=== PATIENT | female | born 1955 | race Caucasian/White ===

== ENCOUNTER → 2018-01-30 08:40 | Outpatient (CLI) | payer OTHER, SELFPAY ==
[2018-01-30 09:56] LABS: AST(SGOT) 16 U/L (15-37); Alanine Aminotransfer ALT/SGPT 24 U/L (13-56); Albumin, Serum 3.6 g/dL (3.2-5.0); Alkaline Phosphatase 92 U/L (45-117); Anion Gap 8 (5-15); BUN 12 mg/dL (7-18); BUN/Creat Ratio 16.6 RATIO (10-20); Calcium,Total 8.6 mg/dL (8.5-10.1); Chloride 104 mmol/L (98-107); Cholesterol 164 mg/dL (200); Creatinine, Serum 0.72 mg/dL (0.55-1.02); EST Glomerular Filtration Rate 87 mL/min (>60); Est Glom Filt Rate - Afr Amer 106 mL/min (>60); Globulin 3.7 g/dL (2.2-4.2); Glucose 93 mg/dL (74-106); High Density Lipoprotein 43 mg/dL; Potassium 3.7 mmol/L (3.5-5.1); Protein, Total 7.3 g/dL (6.4-8.2); Sodium Level 143 mmol/L (136-145); Thyroid Stim Hormone (TSH) 1.77 uIU/mL (0.358-3.74); Triglycerides 104 mg/dL; Very Low Density Lipoprotein 21 mg/dL (5-40)
== END ==
PROVIDERS: Family Provider Family Medicine; PCP Family Medicine; Visit Provider Family Medicine
DX: I10 Essential (primary) hypertension (principal); R63.5 Abnormal weight gain
CPT/HCPCS: 36415; 80053; 80061; 84443

== ENCOUNTER 2018-08-09 16:35 | Outpatient (RCR) | payer OTHER, SELFPAY ==
[2018-06-03 16:38] VITALS: BMI 36.1
== END 2018-08-22 23:59 ==
LOC: NS 16:35
PROVIDERS: Family Provider Family Medicine; PCP Family Medicine; Visit Provider Family Medicine
DX: E66.9 Obesity, unspecified (principal); Z68.36 Body mass index [BMI] 36.0-36.9, adult; Z71.3 Dietary counseling and surveillance
CPT/HCPCS: 97802

== ENCOUNTER 2018-09-08 16:30 | Outpatient (RCR) | payer OTHER, SELFPAY ==
[2018-06-03 16:38] VITALS: BMI 36.1
== END 2018-09-21 23:59 ==
LOC: NS 16:30
PROVIDERS: Family Provider Family Medicine; PCP Family Medicine; Visit Provider Family Medicine
DX: E66.9 Obesity, unspecified (principal); Z68.36 Body mass index [BMI] 36.0-36.9, adult; Z71.3 Dietary counseling and surveillance
CPT/HCPCS: 97803

== ENCOUNTER 2018-09-29 17:21 | Outpatient (RCR) | payer OTHER, SELFPAY ==
[2018-06-03 16:38] VITALS: BMI 36.1
== END 2018-10-22 23:59 ==
LOC: NS 17:21
PROVIDERS: Family Provider Family Medicine; PCP Family Medicine; Visit Provider Family Medicine
DX: E66.9 Obesity, unspecified (principal); Z68.36 Body mass index [BMI] 36.0-36.9, adult; Z71.3 Dietary counseling and surveillance
CPT/HCPCS: 97803

== ENCOUNTER → 2019-02-05 09:22 | Outpatient (CLI) | payer OTHER, SELFPAY ==
[2019-02-01 16:35] VITALS: BMI 34.1
[2019-02-05 10:55] LABS: Anion Gap 6 (5-15); BUN 17 mg/dL (7-18); BUN/Creat Ratio 24.3 RATIO (10-20); Calcium,Total 8.8 mg/dL (8.5-10.1); Chloride 106 mmol/L (98-107); Cholesterol 161 mg/dL (200); EST Glomerular Filtration Rate 90 mL/min (>60); Est Glom Filt Rate - Afr Amer 109 mL/min (>60); Glucose 86 mg/dL (74-106); High Density Lipoprotein 46 mg/dL; Potassium 4.1 mmol/L (3.5-5.1); Sodium Level 142 mmol/L (136-145); Triglycerides 89 mg/dL; Very Low Density Lipoprotein 18 mg/dL (5-40)
== END ==
PROVIDERS: Family Provider Family Medicine; PCP Family Medicine; Referring Provider Family Medicine; Visit Provider Family Medicine
DX: I10 Essential (primary) hypertension (principal)
CPT/HCPCS: 36415; 80048; 80061

== ENCOUNTER → 2021-03-26 | Outpatient (CLI) | payer OTHER, SELFPAY ==
[2021-03-29 15:31] LABS: HPV APTIMA, High Risk Negative (Negative)
[2021-03-29 15:32] LABS: HPV Reflexed? YES, CHARGE PATIENT
== END | disposition home or self-care (01) ==
LOC: LABSPEC 10:54
PROVIDERS: PCP Family Medicine; Referring Provider Physician Assistant; Visit Provider Physician Assistant
DX: Z12.4 Encounter for screening for malignant neoplasm of cervix (principal); Z78.0 Asymptomatic menopausal state
CPT/HCPCS: 87624; 88175; G0145

== ENCOUNTER → 2021-03-30 08:05 | Outpatient (CLI) | payer OTHER, SELFPAY ==
[2021-03-30 09:05] LABS: Absolute Lymphocyte Count 1.65 X10^3/uL (0.83-4.51); Absolute Neutrophil Count 4.9 X10^3/uL (2.0-7.7); Basophil# 0.05 X10^3/uL; Basophil% 0.7 % (0-1); Eosinophil# 0.29 X10^3/uL; Eosinophils% 3.9 % (0-5); Hematocrit 41.6 % (37-47); Hemoglobin 13.7 g/dL (12.0-15.0); Lymphocyte # 1.65 X10^3/ul (0.83-4.51); Lymphocyte % 22.1 % (19-41); Mean Corp Hgb Conc 32.9 g/dL (32-36); Mean Corpuscular Hgb 28.3 pg (27.0-32.0); Mean Platelet Vol. 9.6 fl (6.2-12.0); Monocyte# 0.53 X10^3/uL; Monocyte% 7.1 % (0-10); NRBC Flagged by Analyzer 0 % (0-5); Neutrophil # 4.89 X10^3/uL (2.7-7.7); Neutrophil % 65.7 % (47-70); Platelet Count 297 K/mm3 (150-450); RBC Distribution Width CV 14.6 % (11.6-14.6); RBC Distribution Width SD 46.1 fl (35.1-43.9); Red Blood Count 4.84 M/mm3 (4.2-5.4); White Blood Count 7.5 K/mm3 (4.4-11.0)
[2021-03-30 09:37] LABS: ALB/GLOB Ratio 0.9 RATIO (0.9-2.4); AST(SGOT) 16 U/L (15-37); Alanine Aminotransfer ALT/SGPT 24 U/L (13-56); Albumin, Serum 3.3 g/dL (3.2-5.0); Alkaline Phosphatase 87 U/L (45-117); Anion Gap 3 (5-15); BUN 15 mg/dL (7-18); BUN/Creat Ratio 18.9 RATIO (10-20); Calcium,Total 8.7 mg/dL (8.5-10.1); Chloride 105 mmol/L (98-107); Cholesterol 172 mg/dL (200); EST Glomerular Filtration Rate 77 mL/min (>60); Est Glom Filt Rate - Afr Amer 94 mL/min (>60); Globulin 3.8 g/dL (2.2-4.2); Glucose 102 mg/dL (74-106); High Density Lipoprotein 48 mg/dL; Potassium 3.9 mmol/L (3.5-5.1); Protein, Total 7.1 g/dL (6.4-8.2); Sodium Level 138 mmol/L (136-145); Thyroid Stim Hormone (TSH) 1.81 uIU/mL (0.358-3.74); Triglycerides 109 mg/dL; Very Low Density Lipoprotein 22 mg/dL (5-40)
== END ==
PROVIDERS: PCP Family Medicine; Visit Provider Physician Assistant
DX: Z00.00 Encounter for general adult medical examination without abnormal findings (principal); I10 Essential (primary) hypertension; E66.9 Obesity, unspecified; Z13.220 Encounter for screening for lipoid disorders; Z13.29 Encounter for screening for other suspected endocrine disorder
CPT/HCPCS: 36415; 80053; 80061; 84443; 85025

== ENCOUNTER → 2022-11-21 | Outpatient (CLI) | payer OTHER, SELFPAY | END | disposition home or self-care (01) | LOC: LABSPEC 10:24 | PROVIDERS: PCP Family Medicine; Referring Provider Physician Assistant Surgical; Visit Provider Physician Assistant Surgical | DX: R30.0 Dysuria (principal) | CPT/HCPCS: 87077; 87086; 87088; 87186 ==

== ENCOUNTER → 2023-02-11 | Outpatient (CLI) | payer OTHER, SELFPAY | END | disposition home or self-care (01) | LOC: LABSPEC 08:05 | PROVIDERS: PCP Family Medicine; Visit Provider Physician Assistant | DX: N39.0 Urinary tract infection, site not specified (principal) | CPT/HCPCS: 87077; 87086; 87088; 87186 ==

== ENCOUNTER → 2023-03-12 | Outpatient (CLI) | payer OTHER, SELFPAY ==
[2023-03-17 22:11] LABS: Chlamydia By Nucleic Acid AMP Negative; Gonococcus By Nucleic Acid AMP Negative; HPV Reflexed? NOT INDICATED
== END | disposition home or self-care (01) ==
LOC: LABSPEC 16:06
PROVIDERS: PCP Family Medicine; Referring Provider Family Medicine; Visit Provider Family Medicine
DX: N89.8 Other specified noninflammatory disorders of vagina (principal)
CPT/HCPCS: 87491; 87591; 88142

== ENCOUNTER → 2023-10-09 | Outpatient (CLI) | payer OTHER, SELFPAY ==
[2023-10-09 12:47] LABS: ALB/GLOB Ratio 1.1 RATIO (0.9-2.4); AST(SGOT) 16 U/L (15-37); Alanine Aminotransfer ALT/SGPT 23 U/L (13-56); Albumin, Serum 3.6 g/dL (3.2-5.0); Alkaline Phosphatase 84 U/L (45-117); Anion Gap 4 (5-15); BUN 17 mg/dL (7-18); BUN/Creat Ratio 23.7 RATIO (10-20); Calcium,Total 9.5 mg/dL (8.5-10.1); Chloride 102 mmol/L (98-107); Creatinine, Serum 0.72 mg/dL (0.55-1.02); EST Glomerular Filtration Rate 87 mL/min (>60); Est Glom Filt Rate - Afr Amer 105 mL/min (>60); Globulin 3.2 g/dL (2.2-4.2); Glucose 99 mg/dL (74-106); Potassium 4.6 mmol/L (3.5-5.1); Protein, Total 6.8 g/dL (6.4-8.2); Sodium Level 138 mmol/L (136-145); Thyroid Stim Hormone (TSH) 1.75 uIU/mL (0.358-3.74)
== END | disposition home or self-care (01) ==
LOC: BIMLAB 09:17
PROVIDERS: PCP Family Medicine; Visit Provider Family Medicine
DX: I10 Essential (primary) hypertension (principal)
CPT/HCPCS: 36415; 80053; 84443

== ENCOUNTER → 2024-06-28 | Outpatient (CLI) | payer OTHER, SELFPAY | END | disposition home or self-care (01) | LOC: LABSPEC 10:28 | PROVIDERS: PCP Family Medicine; Visit Provider Family Medicine | DX: N39.0 Urinary tract infection, site not specified (principal) | CPT/HCPCS: 87077; 87086; 87088; 87186 ==

== ENCOUNTER → 2024-12-14 | Outpatient (CLI) | payer MEDICARE, SELFPAY ==
--- NOTE | 2024-12-14 12:21 | BD_ITS ---
PROCEDURE: DEXA BONE DENSITY STUDY 12/14/2024 REASON FOR EXAM: OSTEOPOROSIS F, age 69 y/o . Postmenopausal. TECHNIQUE: DEXA BONE DENSITY STUDY COMPARISON: None available FINDINGS: BMD and T-SCORES Lumbar spine: 0.892 g/cm2, T-score -1.4 Levels: L1 through L4 Right femoral neck: 0.631 g/cm2, T-score -2.0 BD/Dexa Bone Density Study IMPRESSION: Patient's bone density reveals osteopenia with an estimated 10 year risk for hi p fracture of 1.5% and for a Major osteoporotic fracture of 10%. This fracture risk estimate was calculated using FRAX version 3.08. Reading Location: [id number]
== END | disposition home or self-care (01) ==
PROVIDERS: PCP Family Medicine; Referring Provider Family Medicine; Visit Provider Family Medicine
DX: M85.80 Other specified disorders of bone density and structure, unspecified site (principal); Z78.0 Asymptomatic menopausal state
CPT/HCPCS: 77080

== ENCOUNTER → 2025-01-01 | Outpatient (CLI) | payer MEDICARE, SELFPAY ==
--- OUTSIDE RECORDS SUMMARY | 2025-01-02 09:28 | XMS RPT_ITS | CCD ---
Author Organization [facility]iniSy[facility] Care Team Providers Care Cloth Calender Name Role Phone ANILA KESSLER DO Primary Care Physician Dr. Anila Kessler Primary Care Provider [phone] Dr. Anila Kessler Attending Provider [phone] Dr. Anila Kessler Referring Provider [phone] JERSEY Rangel Attending Provider Dr. Anila Kessler Primary Care Provider [phone] Dr. Anila Kessler Referring Provider JERSEY Jackson Attending Provider JERSEY Rangel Attending Provider JERSEY Jackson Attending Provider Dr. Anila Kessler Attending Provider ANILA KESSLER DO Primary Care Physician ANILA KESSLER DO Attending Unavailable ANILA KESSLER DO Primary Care Unavailable Dr. Anila Kessler DO Primary Care Provider Dr. Anila Kessler DO Attending Provider [phone] Dr. Anila Kessler DO Referring Provider Anila Kessler Primary Care Unavailable Brown, Anila R Attending Unavailable Checo, Anila R Referring Unavailable Brown, Anila R Attending Unavailable Brown, Anila R Primary Care Unavailable Brown, Anila R Referring Unavailable Brown, Anila R Attending Unavailable [place], Anila R Primary Care Unavailable Brown, Anila R Primary Care Unavailable Brown, Anila R Referring Unavailable Pranav Orozco Attending Unavailable [place], Anila R Referring Unavailable [place], Anila R Attending Unavailable [place], Anila R Primary Care Unavailable ANILA KESSLER DO Attending Unavailable ANILA KESSLER DO Primary Care Unavailable Roof [employer]K PROCESSING WORKERNithin Starks Attending Provider [phone] Allergies Allergy Classification Reported Allergen(s) Allergy Type Date of Onset Reaction(s) Facility (6 sources) Ampicillin Drug Allergy 11-20-2022 Swelling [facility] (1 source) Ampicillin Drug Allergy 12-22-2024 [facility] Repository Medications Current Medications Medication Drug Class(es) Dates Sig (Normalized) Sig (Original) amLODIPine 5 mg oral tablet (20 sources) Dihydropyridine Calcium Channel Hunter Start: 03-12-2023 End: 12-26-2024 take 1 tablet by mouth once daily Amlodipine 5 mg tablet Active 5 mg PO DAILY 90 0 December 26, 2024 8:37am Start: 03-12-2023 Amlodipine Act rosalva MG PO March 12, 2023 12:00am Start: 04-09-2022 End: 11-20-2022 take 1 tablet by mouth once daily Amlodipine (Norvasc) 5 mg tablet Discontinued 5 mg PO DAILY 90 3 October 01, 2022 4:47pm November 20, 2022 5:16pm Start: 12-02-2017 End: 06-03-2018 take 5 mg by mouth once daily Amlodipine 10 mg tablet Discontinued 5 mg PO daily December 02, 2017 5:00pm June 03, 2018 5:40pm On Hold: None Start: 12-02-2017 End: 06-03-2018 take 5 mg by mouth once daily Amlodipine Discontinued 5 MG PO daily December 02, 2017 5:00pm June 03, 2018 5:40pm On Hold: None Start: 12-02-2017 End: 12-02-2017 take 1 tablet by mouth once daily Amlodipine 10 mg tablet Discontinued 10 mg PO daily December 02, 2017 12:00am December 02, 2017 5:01pm ibuprofen 200 mg oral tablet (2 sources) Nonsteroidal Anti-inflammatory Drug Start: 12-22-2024 take 1 tablet by mouth twice daily Ibuprofen (Advil) 200 mg tablet Active 200 mg PO TWICE A DAY December 22, 2024 12:00am nitrofurantoin, macrocrystals 25 mg / nitrofurantoin, monohydrate 75 mg oral capsule (15 sources) Nitrofuran Antibacterial Start: 01-01-2025 take 1 capsule by mouth every twelve hours at mealtime Nitrofurantoin Monohyd/M-Cryst (Macrobid) 100 mg capsule Active 100 mg PO Q12H 14 7 0 January 01, 2025 12:00am January 07, 2025 12:00am must administer with a meal/food Start: 06-28-2024 End: 07-03-2024 take 1 capsule by mouth every twelve hours at mealtime Nitrofurantoin Monohyd/M-Cryst (Macrobid) 100 mg capsule Discontinued 100 mg PO Q12H 10 5 0 June 28, 2024 1:00am July 02, 2024 1:00am July 03, 2024 1:12am must administer with a meal/food Start: 02-14-2023 End: 02-21-2023 take 1 capsule by mouth every twelve hours at mealtime Nitrofurantoin Monohyd/M-Cryst (Macrobid) 100 mg capsule Discontinued 100 mg PO Q12H 14 7 0 February 14, 2023 12:00am February 20, 2023 12:00am February 21, 2023 12:25am must administer with a meal/food Start: 11-24-2022 End: 12-01-2022 take 1 capsule by mouth every twelve hours at mealtime Nitrofurantoin Monohyd/M-Cryst 100 mg capsule Discontinued 1 NMA PO Q12H 14 7 0 November 24, 2022 12:00am November 30, 2022 12:00am December 01, 2022 12:03am administer with a meal/food; swallow whole; do not open, crush, dissolve , or chew triamcinolone acetonide 0.001 mg/mg topical ointment (16 sources) Corticosteroid Start: 03-12-2023 Triamcinolone Acetonide 0.1 % ointment Active TOPICAL March 12, 2023 12:00am Start: 03-12-2023 Triamcinolone Acetonide Active TOPICAL March 12, 2023 12:00am Start: 03-26-2022 End: 02-10-2023 Triamcinolone Acetonide 0.05 % ointment Discontinued 1 NMA TOPICAL DAILY March 26, 2022 12:00am February 10, 2023 5:07pm Start: 02-27-2020 End: 03-06-2021 Triamcinolone Acetonide 0.1 % ointment Discontinued 1 NMA TOPICAL TWICE A DAY 30 February 27, 2020 12:00am March 06, 2021 4:09pm valsartan 80 mg oral tablet (3 sources) Angiotensin 2 Receptor Hunter Start: 07-05-2024 take 1 tablet by mouth once daily Valsartan 80 mg tablet Active 80 mg PO daily 90 July 05, 2024 1:00am Completed/Discontinued Medications Medication Drug Class(es) Dates Sig (Normalized) Sig (Original) Compress.Leif Magaña,Reg,Lrg (3 sources) Start: 12-02-2017 End: 01-19-2018 Compress.Moustapha Magaña,Reg,Lrg Discontinued 0 .ROUTE .MEDSUPPLY 2 December 02, 2017 12:00am January 19, 2018 4:13pm wear daily for venous insufficiency Compress.Leif Magaña,Reg,Lrg misc (3 sources) Start: 12-02-2017 End: 01-19-2018 Compress.Moustapha Magaña,Reg,Lrg misc Discontinued 0 .ROUTE .MEDSUPPLY 2 December 02, 2017 12:00am January 19, 2018 4:13pm wear daily for venous insufficiency ELDERBERRY FRUIT (6 sources) Start: 10-01-2022 End: 11-20-2022 Elderberry Fruit 350 mg capsule Discontinued mg PO October 01, 2022 12:00am November 20, 2022 5:16pm Start: 10-01-2022 End: 11-20-2022 Elderberry Fruit Discontinue d MG PO October 01, 2022 12:00am November 20, 2022 5:16pm fluconazole 200 mg oral tablet (11 sources) Azole Antifungal Start: 02-10-2023 End: 03-12-2023 Fluconazole (Diflucan) 200 mg tablet Discontinued 200 mg PO Every 3 Days 2 February 10, 2023 12:00am March 12, 2023 2:07pm Start: 11-20-2022 End: 02-10-2023 Fluconazole (Diflucan) 150 m g tablet Discontinued 150 mg PO Every 3 Days 2 November 20, 2022 12:00am February 10, 2023 5:08pm may repeat second dose 72 hrs after first dose if symptoms persist hydroCHLOROthiazide 25 mg oral tablet (20 sources) Thiazide Diuretic Start: 12-02-2017 End: 07-05-2024 take 1 tablet by mouth once daily in the morning Hydrochlorothiazide 25 mg tablet Discontinued 25 mg PO EVERY MORNING 90 0 September 09, 2022 9:17am October 01, 2022 4:48pm Lactobacillus Combination No.9 (Adult 50 Plus Probiotic) 4 billion cell capsule (6 sources) Start: 10-01-2022 End: 11-20-2022 take 4 capsules by mouth once daily Lactobacillus Combination No.9 (Adult 50 Plus Probiotic) 4 billion cell capsule Discontinued 4000 NMA PO DAILY October 01, 2022 12:00am November 20, 2022 5:16pm administer with a meal Start: 10-01-2022 End: 11-20-2022 take 4 capsules by mouth once daily Lactobacillus Combination No.9 (Adult 50 Plus Probiotic) 4 billion cell capsule Discontinued 4000 MMU CELLS PO DAILY October 01, 2022 12:00am November 20, 2022 5:16pm administer with a meal lisinopril 30 mg oral tablet (20 sources) Angiotensin Converting Enzyme Inhibitor Start: 03-26-2022 End: 07-05-2024 take 1 tablet by mouth once daily Lisinopril 30 mg tablet Discontinued 30 mg PO daily 90 0 September 16, 2023 12:30pm September 30, 2023 4:38pm Start: 12-02-2017 End: 03-26-2022 take 1 tablet by mouth once daily Lisinopril 20 mg tablet Discontinued 20 mg PO daily 90 1 September 18, 2021 10:25am September 25, 2021 4:44pm prednisoLONE acetate 10 mg/ml ophthalmic suspension (6 sources) Corticosteroid Start: 08-23-2020 End: 03-06-2021 Prednisolone Acetate 1 % drops,suspension Discontinued 1 NMA OPHTHALMIC TWICE A DAY 5 0 August 23, 2020 12:00am March 06, 2021 4:09pm Vernal conjunctivitis allergies urea 390 mg/ml topical cream (6 sources) Start: 06-08-2018 End: 02-01-2019 Urea 39 % cream Discontinued 0 TOPICAL .COMPLEX 227 1 June 08, 2018 1:00am February 01, 2019 4:34pm apply TOPICAL twice daily Problems Problem Classification Problem Date Documented Date Episodic/Chronic Allergic reactions (6 sources) Eczema of lower leg; Translations: [Dermatitis, unspecified] 06-03-2018 Episodic Essential hypertension (7 sources) Hypertensive disorder; Translations: [Essential (primary) hypertension] 01-19-2018 Chronic Genitourinary symptoms and ill-defined conditions (6 sources) Urge incontinence of urine; Translations: [Urge incontinence] 02-01-2019 Chronic Inflammation; infection of eye (except that caused by tuberculosis or sexually transmitteddisease) (6 sources) Vernal conjunctivitis; Translations: [Vernal conjunctivitis of left eye] 08-23-2020 Chronic Mycoses (9 sources) Candidiasis of vagina; Translations: [Candidiasis of vagina] 11-20-2022 Episodic Osteoporosis (1 source) Age-related osteoporosis without current pathological fracture; Translations: [Age-related osteoporosis without current pathological fracture] Onset: 12-21-2024 Chronic Other connective tissue disease (4 sources) Iliotibial band friction syndrome; Translations: [Iliotibial band syndrome, unspecified leg] 12-22-2024 Episodic Other female genital disorders (4 sources) Vaginal discharge problem; Translations: [Other specified noninflammatory disorders of vagina] 03-12-2023 Episodic Other female genital disorders (1 source) Other specified noninflammatory disorders of vagina; Translations: [Other specified symptoms associated with female genital organs] 03-12-2023 Episodic Other nutritional; endocrine; and metabolic disorders (3 sources) Obesity; Translations: [Obesity, unspecified] 09-30-2023 Chronic Other skin disorders (6 sources) Seborrheic keratosis; Translations: [Other seborrheic keratosis] 02-01-2019 Episodic Urinary tract infections (4 sources) Urinary tract infection, site not specified; Translations: [Acute cystitis with hematuria] Onset: 06-28-2024 01-01-2025 Episodic Results Test Name Value Interpretation Reference Range Facility MA MAMMOGRAM SCREENING BILAT ERAL W/TOMOon 12-30-2024 MA MAMMOGRAM SCREENING BILATERAL W/MEENA ORIGINAL FROM: ANTHONY MORENO[address] [address] PROCEDURE FOR: LEONARDO NIX [address] [place] [id number] Home: PID#: [id number] Exam#: [id number] : 1955 Age: 69 TO: ANILA KESSLER DO [address] [place], [place] [address] EXAMINATION: SCREENING DIGITAL BILATERAL MAMMOGRAM WITH TOMOSYNTHESIS, 12/29/2024 7:22 am TECHNIQUE: Screening mammography of the bilateral breasts was performed with tomosynthesis. 2D standard and 3D tomosynthesis combination imaging performed through both breasts in the MLO and CC projection. Computer aided detection was utilized in the interpretation of this exam. COMPARISON: 11/13/2023, 10/22/2022 HISTORY: Breast cancer screening. FINDINGS: BREAST DENSITY: There are scattered areas of fibroglandular density. There are no significant masses or calcifications. IMPRESSION: No mammographic evidence of malignancy. Continued screening with annual mammograms is recommended. [facility] risk calculations, generated with the history provided, report this patient's 10 year risk and lifetime risk for developing breast cancer at 2.2% and 4.1%, respectively. Based on this assessment tool, if the patient's calculated lifetime risk is below 20%, then the patient is considered at average risk for developing breast cancer. If the patient's calculated lifetime risk is at or above 20%, then the patient is considered high risk for developing breast cancer and may be a candidate for supplemental breast MRI screening in addition to annual mammographic screening per the [employer]. BIRADS: BI-RADS: 1: Negative RECALL: 1 year screening RECALL TYPE: mammo LETTER SENT: Normal BI-RADS 1 and 2 Interpreted by: Jeffry Dos Santos MD Preliminary Report By: Jeffry Dos Santos MD Electronically signed By Jeffry Dos Santos MD Dictated Date: 12/30/2024 9:13:33 AM Prelim Date: 12/30/2024 9:17:43 AM Sign Date: 12/30/2024 9:17:43 AM Ordering Provider: ANILA KESSLER Ingot Buggy Operator: LUIS ENRIQUE SERRANO RT(R)(M)(CT) WELCOME HOSTESS letter sent: Normal BI-RADS 1 and 2 Mammogram BI-RADS: 1 Negative Normal [facility] Internal Medicine Office Vis michael 12-22-2024 Internal Medicine Office Visit [facility] [address] [place], [place] [address] OFFICE VISIT Date of Service: 12/22/24 MR#: [id number] Acct: [id number] Name: LEONARDO NIX Rep #: [id number] : 1955 Provider: Dr. Anila arce, DO Age/Sex: 69/F Location[place] [facility] Status: Signed Intake Vital Signs 07/05/24 15:58 12/22/24 11:42 Height 5 ft 5 in 5 ft 5 in Weight: 213 lb 212 lb BMI 35.4 35.2 BP 132/72 H 132/82 H Blood Pressure Location Rt brachial Lt brachial Position Sitting Sitting Respiration 16 16 Pulse 68 70 Pulse Source Monitor Monitor Temp 97.3 F L 97.2 F L Temp Source Temporal Temporal Pulse Oximetry (%) 98 98 Oxygen Delivery Method room air room air Intake Visit Reasons: DISCUSS CONCERNS Chief Complaint: to discuss bone density results. 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 Is patient in pain?: No Allergies ampicillin Allergy (Severe, Verified 12/22/24 11:30) Swelling Medications ???Medication ???Instructions ???Recorded ???Confirmed ???Type triamcinolone acetonide 0.1 % topical 03/12/23 12/22/24 History topical ointment hydrochlorothiazide 25 mg tablet 25 mg PO QAM #90 tabs 07/05/24 Rx valsartan 80 mg tablet 80 mg PO QDAY #90 tabs 07/05/24 Rx amlodipine 5 mg tablet 5 mg PO DAILY #90 TABLETS 09/27/24 12/22/24 Rx ibuprofen 200 mg tablet (Advil) 200 mg PO BID 12/22/24 12/22/24 Hi story Have you fallen in the past year?: No Nurse's Note: Pt states that both hips have been hurting for awhile, but lately they hurt when getting up, when standing from sitting, both hips hurt and moving around helps after a moment of it, but stiff upon standing. Pt does exercise but no know injury occurred. The hip pain is generally described as a deep ache. Denies radiating pain, numbness tingling or loss of feeling. Pain is 6/10 and is annoying. Uncertain if there is a vitamin or otc remedy that would help. Wonders if advil is okay to help w/ pain. She takes 2 qd. Pt wants to discuss bone denisty results. PFSH Medical History UTI (urinary tract infection) Hypertension Surgical History No history of previous surgery Family History Mother Heart disease Hypertension Father Alcohol abuse Brother Heart disease Social History Smoking Status: Former smoker how long ago did patient quit smokin alcohol intake: never substance use type: does not use what type of physical activity do you participate in: walking frequency: 3-4 times per week duration: 30-45 minutes/day HPI HPI Chief Complaint: to discuss bone density results. Details: LEONARDO NIX, is a 69 F who presents to the office today for a visit to discuss her bone density results and some problems with intermittent bilateral hip pain. ROS Const Constitutional: No body ache, chills, excessive sweating, fatigue, fever(s), frequent falls, headache(s), snoring, weakness, sleep problems or change in appetite Eyes Eyes: No blurry vision, change in vision, eye pain or Light sensitivity ENT ENT: No abnormal hearing, ear or mastoid pain, tinnitus, nasal congestion, headache(s), neck pain or sore throat Resp Respiratory: No cough, shortness of breath, snoring or wheezing Cardio Cardiology: No chest pain at rest, chest pain with exertion, excessive sweating, shortness of breath, dyspnea on exertion, lightheadedness, orthopnea or palpitations Gastro GI: No abdominal pain, change in bowel habits, constipation, cramping, diarrhea, nausea/dyspepsia or vomiting Genitourinary-Femal e: No burning urination, painful urination, urinary incontinence, urinary frequency, abnormal vaginal bleeding or pelvic pain Musc Musculoskeletal: No abnormal gait, joint pain, back pain, limited range of motion, neck pain or numbness Skin Skin: No dry skin, redness, lesions, itchy eyes, rash or wounds Neuro Neurology: No abnormal gait, abnormal hearing, weakness, frequent falls, headache(s), memory loss or numbness Psych Psychiatric: No anxiety, No change in appetite, No depression, No memory loss and No Thoughts of harming yourself/Others Endo Endocrine: No cold intolerance, excessive sweating, fatigue, flushing, heat intolerance, increased thirst/drinking or increased hunger Aller/Imm Allergy/Immunologic : No itchy eyes, seasonal allergy symptoms, hives or wheezing [place]/Lymp Hematologic/Lymphat ic: No easy bleeding, easy bruising, enlarged lymph nodes or other Exam Const General: cooperative, healthy appearing and comfortable Nutritional Appearance: overweight HENMT Head: normal to inspe (more content not included)... Normal [facility] Bone density reportOrdered B y: Debra Salomon on 12-16-2024 Study report Skeletal system DXA [facility] Imaging Services [address] [place] [address] Dexa Bone Density Study MR#: [id number] Acct: [id number] Name: LEONARDO NIX Jack Rep #: [id number] : 1955 F 69 From: Mannie Lima MD PCP: Dr. Anila Kessler DO Status: RE G CLI Study:Dexa Bone Density Study Date of Exam: 12/14/24 Exam# [id number] Ordering Dr: Do glenn Kessler DO PROCEDURE: DEXA BONE DENSITY STUDY 12/14/2024 REASON FOR EXAM: OSTEOPOROSIS F, age 69 y/o . Postmenopausal. TECHNIQUE: DEXA BONE DENSITY STUDY COMPARISON: None available FINDINGS: BMD and T-SCORES Lumbar spine: 0.892 g/cm2, T-score -1.4 Levels: L1 through L4 Right femoral neck: 0.631 g/cm2, T-score -2.0 BD/Dexa Bone Density Study IMPRESSION: Patient's bone density reveals osteopenia with an estimated 10 year risk for hipfracture of 1.5% and for a Major osteoporotic fracture of 10%. This fracture risk estimate was calculated using FRAX version 3.08. Reading Location: [id number] CC: Dr. Anila Kessler DO ~ [place] Former: Signed [facility] Dexa Bone Density Studyon Dexa Bone Density Study [facility] Imaging Services [address] [place] [address] Dexa Bone Density Study MR#: [id number] Acct: [id number] Name: LEONARDO NIX Rep #: [id number] : 1955 F 69 From: Debra Zapata i, MD PCP: Dr. Anila Kessler DO Status: REG CLI Study: Dexa Bone Density Study Date of Exam: 12/14/24 Exam# [id number] Ordering Dr: Anila Kessler DO PROCEDURE: DEXA BONE DENSITY STUDY 12/14/2024 REASON FOR EXAM: OSTEOPOROSIS F, age 69 y/o . Postmenopausal. TECHNIQUE: DEXA BONE DENSITY STUDY COMPARISON: None available FINDINGS: BMD and T-SCORES Lumbar spine: 0.892 g/cm2, T-score -1.4 Levels: L1 through L4 Right femoral neck: 0.631 g/cm2, T-score -2.0 BD/Dexa Bone Density Study IMPRESSION: Patient's bone density reveals osteopenia with an estimated 10 year risk for hip fracture of 1.5% and for a Major osteoporotic fracture of 10%. This fracture risk estimate was calculated using FRAX version 3.08. Reading Location: [id number] CC: Dr. Anila Kessler DO [place] Former: Signed Normal [facility] Internal Medicine Office Vis iton 07-05-2024 Internal Medicine Office Visit [facility] [place] [address] [place] [address] OFFICE VISIT Date of Service: 07/05/24 MR#: [id number] Acct: [id number] Name: LEONARDO NIX Rep #: [id number] : 1955 Provider: Dr. 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 Accompanied by: Self Is patient in pain?: No Allergies ampicillin Allergy (Severe, Verified 07/05/24 15:55) Swelling Medications ???Medication ???Instructions ???Recorded ???Confirmed ???Type triamcinolone acetonide 0.1 % topical 03/12/23 07/05/24 History topical ointment amlodipine 5 mg tablet 5 mg PO DAILY #90 TABLETS 06/21/24 07/05/24 Rx hydrochlorothiazide 25 mg tablet 25 mg PO QAM #90 tabs 07/05/2404/18 Rx valsartan 80 mg tablet 80 mg PO QDAY #90 tabs 07/05/24 Rx Have you fallen in the past year?: No PFSH Medical History UTI (urinary tract infection) Hypertension Surgical History No history of previous surgery Family History Mother Heart disease Hypertension Father Alcohol abuse Brother Heart disease Social History Smoking Status: Former smoker how long ago did patient quit smokin alcohol intake: never substance use type: does not use what type of physical activity do you participate in: walking frequency: 3-4 times per week duration: 30-45 minutes/day HPI HPI Chief Complaint: follow up bumps on left foot Details: LEONARDO NIX, is a 68 F who presents to the office today for concerns about bumps on her left foot toward the heel and also a chronic dry nonproductive cough that seems to be getting worse as the months go by. She also has some questions on immunizations and on getting a bone density test. ROS Const Constitutional: No body ache, excessive sweating, fatigue, fever(s), frequent falls, headache(s), snoring, weakness, weight change, sleep problems or change in appetite Eyes Eyes: No blurry vision, change in vision, eye pain or Light sensitivity ENT ENT: No abnormal hearing, ear or mastoid pain, tinnitus, nasal congestion, headache(s), neck pain or sore throat Resp Respiratory: No cough, shortness of breath, snoring or wheezing Cardio Cardiology: No chest pain at rest, chest pain with exertion, excessive sweating, shortness of breath, dyspnea on exertion, lightheadedness, orthopnea or palpitations Gastro GI: No abdominal pain, change in bowel habits, constipation, cramping, diarrhea, nausea/dyspepsia or vomiting Genitourinary-Femal e: No burning urination, painful urination, urinary incontinence, urinary frequency, blood in urine, abnormal periods or pelvic pain Musc Musculoskeletal: No abnormal gait, joint pain, back pain, limited range of motion, neck pain, numbness, stiffness, tingling or Arthritis Skin Skin: Positive for other (bumps ); No dry skin, redness, lesions, itchy eyes, rash or wounds Neuro Neurology: No abnormal gait, abnormal hearing, abnormal speech, dizziness, weakness, frequent falls, headache(s), memory loss, numbness or tingling Psych Psychiatric: No anxiety, No change in appetite, No depression, No memory loss and No Thoughts of harming yourself/Others Endo Endocrine: No cold intolerance, excessive sweating, fatigue, flushing, heat intolerance, increased thirst/drinking, increased hunger or weight change Aller/Imm Allergy/Immunologic : No itchy eyes, seasonal allergy symptoms, hives or wheezing [place]/Lymp Hematologic/Lymphat ic: No easy bleeding, easy bruising or enlarged lymph nodes Exam Const General: cooperative and healthy appearing Nutritional Appearance: overweight Neck Neck: normal visual inspection Chest Chest palpation inspection: normal inspection of the chest Resp Effort Inspection: normal respiratory effort Auscultation: Bilateral: Clear to Auscultation Cardio Rate: regular rate Rhythm: regular rhythm Extrem Other: These appear to be simple ganglion cyst of the foot one of them is less than a centimeter the other is barely palpable at all. They cause no pain she is more concerned about them being cancerous or serious problem. Psych Appearance: g (more content not included)... Normal [facility] Urine Cultureon 06-30-2024 [facility] Escherichia coli [place] Count 25,000-50,000 Escherichia coli: REACTION Ampicillin Islt EDE 4 Ampicillin+Sulbac Islt EDE <=2 S Cefepime Islt EDE <=0.12 S cefTRIAXone Islt EDE <=0.25 S Ciprofloxacin Islt EDE <=0.06 S B-Lactamase Extended Susc Islt NEG Gentamicin Islt EDE <=1 S levoFLOXacin Islt EDE <=0.12 S Meropenem Islt EDE <=0.25 S Nitrofurantoin Islt EDE <=16 S Pip+Tazo Islt EDE <=4 S TMP SMX Islt EDE <=20 S Normal [facility] Comment on above: Performed By: #### M [id number] #### [facility] [address] [place], [place], [address] Urgent Care Visit Reporton 0 06-28-2024 Urgent Care Visit Report [facility] [address], [address] [place], [place] [address] OFFICE VISIT Date of Service: 06/28/24 MR#: [id number] Acct: [id number] Name: LEONARDO NIX Rep #: [id number] : 1955 Provider: GAURI Orozco Age/Sex: 68/F Location: [facility] Status: Signed Intake Vital Signs 09/30/23 16:29 06/28/24 09:24 Height 5 ft 5 in 5 ft 5 in Weight: 221 lb 217 lb 2 oz BMI 36.8 36.1 BP 134/80 H 122/80 H Blood Pressure Location Lt brachial Position Sitting Sitting Respiration 16 Pulse 56 L 75 Pulse Source Monitor Temp 97.2 F L 97.9 F Temp Source Temporal Oral Pulse Oximetry (%) 97 98 Oxygen Delivery Method room air room air Intake Visit Reasons: POSSIBLE UTI Chief Complaint: UTI ? Accompanied by: Self Allergies ampicillin Allergy (Severe, Verified 06/28/24 09:25) Swelling Medications ???Medication ???Instructions ???Recorded ???Confirmed ???Type triamcinolone acetonide 0.1 % topical 03/12/23 06/28/24 History topical ointment hydrochlorothiazide 25 mg tablet 25 mg PO QAM #90 tabs 09/30/2309/16 Rx lisinopril 30 mg tablet 30 mg PO QDAY #90 tabs 09/30/23 Rx amlodipine 5 mg tablet 5 mg PO DAILY #90 TABLETS 06/21/24 06/28/24 Rx nitrofurantoin 100 mg PO Q12H 5 days #10 caps 09/1606/28/24 Rx monohydrate/macrocr ystals 100 mg capsule (Macrobid) Have you fallen in the past year?: No Nurse's Note: Patient has concerns for a UTI. [facility] Medical History (Updated 06/28/24 @ 09:25 by GAURI Whitley) UTI (urinary tract infection) Hypertension Surgical History No history of previous surgery Family History Mother Heart disease Hypertension Father Alcohol abuse Brother Heart disease Social History Smoking Status: Former smoker how long ago did patient quit smokin alcohol intake: never substance use type: does not use what type of physical activity do you participate in: walking frequency: 3-4 times per week duration: 30-45 minutes/day HPI HPI Chief Complaint: UTI ? Details: LEONARDO NIX, is a 68 F who presents to the office today for HPI: Patient presents today for urinary urgency that started about 2 days ago. She otherwise denies any urinary burning nausea vomiting abdominal pain or fever. Does note occasional previous UTIs but with symptoms not similar to this. ROS: As noted in HPI Physical Exam: VITALS: Reviewed. GEN: Healthy appearing, well-developed, NAD. PSYCH: AOx3. Normal memory, mood, and affect. HEENT -Eyes: -No discharge or redness; -Ears: -Mouth and throat: Moist mucous membranes. NECK: CV: Regular rate and rhythm LUNGS: Normal respiratory effort. Lungs clear bilaterally. Abdomen: Soft nontender SKIN: Warm, well perfused. No skin rashes or abnormal lesions noted. MSK: Normal gait. NEURO: Ambulating with no limitations. Normal muscle strength and tone. No focal deficits. Coding Level of Care Code Off vis,est,level 3 Diagnoses Acute cystitis with hematuria N30.01 Hematuria presence: with hematuria Urinary tract infection type: acute cystitis Assessment and Plan Assessment and Plan (1) UTI (urinary tract infection): Status: Acute Qualifiers: Hematuria presence: with hematuria Urinary tract infection type: acute cystitis Qualified Code(s): N30.01 - Acute cystitis with hematuria Plan: Urinalysis today positive for moderate leukocytes, trace protein, large amounts of blood. Patient started on Macrobid and urine sent for culture. She will follow-up with PCP in 1 week. Orders: Orders Culture, Urine Today N39.0 - Urinary tract infection, site not specified Medications: New nitrofurantoin monohyd/m-cryst 100 mg (Macrobid) must administer with a meal/food 100 mg PO Q12H 5 days 10 caps 0RF Clinical Quality Measures Falls Risk Screening/Assistive Devices Have you fallen in the past year?: No 06/28/24 0926 Date Pranav Ernesto MILK PROCESSING WORKER-C Cosigner Signature: Date (if applicable) CC: Normal [facility] MA MAMMOGRAM SCREENING BILAT ERAL W/TOMOon 11-13-2023 MA MAMMOGRAM SCREENING BILATERAL W/MEENA ORIGINAL FROM: [place] [id number] [place], [place] [address] PROCEDURE FOR: LEONARDO NIX [address] [place] [id number] Home: PID#: [id number] Exam#: [id number] : 1955 Age: 68 TO: ANILA KESSLER DO [address] [place], [place] [address] EXAMINATION: SCREENING DIGITAL BILATERAL MAMMOGRAM WITH TOMOSYNTHESIS, 11/13/2023 6:52 am TECHNIQUE: Screening mammography of the bilateral breasts was performed with tomosynthesis. 2D standard and 3D tomosynthesis combination imaging performed through both breasts in the MLO and CC projection. Computer aided detection was utilized in the interpretation of this exam. COMPARISON: October 22, 2022, April 26, 2021 HISTORY: Breast cancer screening. FINDINGS: BREAST DENSITY: There are scattered areas of fibroglandular density. There are no significant masses or calcifications. IMPRESSION: No mammographic evidence of malignancy. Continued screening with annual mammograms is recommended. Paty Abdul risk calculations, generated with the history provided, report this patient's 10 year risk and lifetime risk for developing breast cancer at 2.2% and 4.3%, respectively. Based on this assessment tool, if the patient's calculated lifetime risk is below 20%, then the patient is considered at average risk for developing breast cancer. If the patient's calculated lifetime risk is at or above 20%, then the patient is considered high risk for developing breast cancer and may be a candidate for supplemental breast MRI screening in addition to annual mammographic screening per the [employer]. BIRADS: BI-RADS: 1: Negative RECALL: 1 year screening RECALL TYPE: mammo LETTER SENT: Normal BI-RADS 1 and 2 Interpreted by: Eliane Mcginnis Preliminary Report By: Eliane Mcginnis Electronically signed By Eliane Mcginnis Dictated Date: 11/13/2023 1:31:16 PM Prelim Date: 11/13/2023 1:35:47 PM Sign Date: 11/13/2023 1:35:47 PM Ordering Provider: ANILA KESSLER Ingot Buggy Operator: LUIS ENRIQUE SERRANO RT(R)(M)(CT) WELCOME HOSTESS letter sent: Normal BI-RADS 1 and 2 Mammogram BI-RADS: 1 Negative Normal [facility] ([place]) Cervical or vagninal specime n microscopic examination by cytology stain (reported asOrdered By: Anila Kessler on 03-12-2023 Cytology report Cyto stain Doc (Cvx/Vag) Comment . [facility] Comment on above: The Pap smear is a s creening test designed to aid in thedetection of premalignant and malignant conditions of theuterine cervix. It is not a diagnostic procedure andshould not be used as the sole means of detecting cervicalcancer. Both false-positive and false-negative reports dooccur. Laboratory - CytologyOrdered By: Anila Kessler on 03-12-2023 Pulmonary Physician Cyto stain Nom (Cvx/Vag) [ID] Comment . [facility] Comment on above: Page Lee Cytot echnologist (ASCP) Laboratory - Microbiology an d Antimicrobial susceptibilityOrdered By: Anila Kessler on 03-12-2023 C. trachomatis DNA KHANH+probe Ql (Unsp spec) Negative [facility] N. gonorrhoeae DNA KHANH+probe Ql (Unsp spec) Negative [facility] Laboratory - Miscellaneous t estsOrdered By: Anila Kessler on 03-12-2023 Service comment (Unsp spec) [Interp] . . [facility] No Panel InformationOrdered By: Anila Kessler on 03-12-2023 Human Papillomavirus Screen Comment . [facility] Comment on above: The HPV DNA reflex c kj were not met with this specimenresult therefore, no HPV testing was performed. Pathology report final diagnosis Narrative Comment . [facility] Comment on above: NEGATIVE FOR INTRAEP ITHELIAL LESION OR MALIGNANCY. Culture, urineOrdered By: St emily Eng on 02-11-2023 Bacteria identified Cx Nom (U) Enterococcus faecalis [facility] Bacteria identified Cx Nom (U) Mixed Gram Pos & Gram Neg Org [facility] Laboratory - Chemistry and C hemistry - challengeon 02-10-2023 Bilirubin Ql (U) Negative [facility] Glucose Ql (U) Negative [facility] Ketones Ql (U) Negative [facility] pH (U) 7.0 [pH] [facility] Specific gravity (U) [Rel density] 1.030 [facility] Urobilinogen (U) [Mass/Vol] Negative [facility] Laboratory - Hematology and Cell countson 02-10-2023 Hemoglobin Ql (U) Moderate [facility] - Specimen inform ationon 02-10-2023 Clarity (U) Clear [facility] Color (U) Yellow [facility] Laboratory - Urinalysison Nitrite Ql (U) Negative [facility] Protein Ql (U) Negative [facility] No Panel Informationon 02-10 Urine Leukocytes Negatve [facility] Urine Non-Hemolyzed Blood [facility] Culture, urineOrdered By: Coral Ballard on 11-20-2022 Bacteria identified Cx Nom (U) Enterococcus faecalis [facility] Bacteria identified Cx Nom (U) Escherichia coli [facility] Bacteria identified Cx Nom (U) Raoultella planticola [facility] - Chemistry and C hemistry - challengeon 11-20-2022 Bilirubin Ql (U) Negative [facility] Glucose Ql (U) Negative [facility] Ketones Ql (U) Negative [facility] pH (U) 6.0 [pH] [facility] Specific gravity (U) [Rel density] 1.020 [facility] Urobilinogen (U) [Mass/Vol] 0.2068699 mg/dL [facility] Laboratory - Hematology and Cell countson 11-20-2022 Hemoglobin Ql (U) Trace [facility] - Specimen inform ationon 11-20-2022 Clarity (U) Hazy [facility] Color (U) DARK YELLOW [facility] Laboratory - Urinalysison Nitrite Ql (U) Negative [facility] Protein Ql (U) Trace [facility] No Panel Informationon 11-20 Urine Leukocytes Positive [facility] Urine Non-Hemolyzed Blood Negative [facility] LABORATORYOrdered By: Marita Hernández on 03-31-2022 Albumin BCP dye [Mass/Vol] 3.6 G/dL Invalid Interpretation Code 3.4 - 4.8 G/dL AO ADM SS Albumin/Globulin [Mass ratio] 1.2 {ratio} Invalid Interpretation Code 1.1 - 2.5 ratio AO ADM SS ALP [Catalytic activity/Vol] 91 U/L Invalid Interpretation Code 40 - 135 U/L AO ADM SS ALT With P-5'-P [Catalytic activity/Vol] 29 U/L Invalid Interpretation Code 14 - 59 U/L AO ADM SS AST With P-5'-P [Catalytic activity/Vol] 19 U/L Invalid Interpretation Code 10 - 40 U/L AO ADM SS Bilirubin [Mass/Vol] 0.6 mg/dL Invalid Interpretation Code 0.2 - 1.0 mg/dL AO ADM SS Calcium [Mass/Vol] 8.8 mg/dL Invalid Interpretation Code 8.4 - 10.2 mg/dL AO ADM SS Chloride [Moles/Vol] 104 mmol/L Invalid Interpretation Code 98 - 107 mmol/L AO ADM SS Cholesterol [Mass/Vol] 183 mg/dL Invalid Interpretation Code 0 - 200 mg/dL AO ADM SS Cholesterol in HDL [Mass/Vol] 48 mg/dL Invalid Interpretation Code 40 - 60 mg/dL AO ADM SS Cholesterol in LDL [Mass/Vol] 113 mg/dL Invalid Interpretation Code 0 - 130 mg/dL AO ADM SS CO2 [Moles/Vol] 32 mmol/L Invalid Interpretation Code 23 - 31 mmol/L AO ADM SS Creatinine [Mass/Vol] 0.75 mg/dL Invalid Interpretation Code 0.55 - 1.02 mg/dL AO ADM SS Electrolyte Balance 7.0 mEq/L Invalid Interpretation Code 4.0 - 15.0 mEq/L AO ADM SS Globulin 3.1 G/dL Invalid Interpretation Code AO ADM SS Glucose [Mass/Vol] 102 mg/dL Invalid Interpretation Code 80 - 115 mg/dL AO ADM SS Potassium [Moles/Vol] 4.4 mmol/L Invalid Interpretation Code 3.5 - 5.1 mmol/L AO ADM SS Protein [Mass/Vol] 6.7 G/dL Invalid Interpretation Code 6.4 - 8.2 G/dL AO ADM SS Sodium [Moles/Vol] 143 mmol/L Invalid Interpretation Code 136 - 145 mmol/L AO ADM SS Triglyceride [Mass/Vol] 108 mg/dL Invalid Interpretation Code 0 - 150 mg/dL AO ADM SS Urea nitrogen [Mass/Vol] 17 mg/dL Invalid Interpretation Code 7 - 18 mg/dL AO ADM SS Urea nitrogen/Creatinine [Mass ratio] 23 ratio Invalid Interpretation Code 7 - 27 ratio AO ADM SS LABORATORYOrdered By: SYSTEM SYSTEM on 03-31-2022 GFR 94 ml/min/1.73sqm Invalid Interpretation Code AO Chemistry S GFR Non- 78 ml/min/1.73sqm Inval id Interpretation Code AO Chemistry S Vital Signs Date Time Vital Sign Value Performing Clinician Lorraine hamilton 01-01-2025 08:06-0400 Body temperature 98.6 [degF] Dr. Anila Kessler DO Work Phone: [facility] 01-01-2025 08:06-0400 Diastolic blood pressure 64 mm[Hg] Dr. Anila Kessler DO Work Phone: [facility] 01-01-2025 08:06-0400 Heart rate 71 /min Dr. Anila Kessler DO Work Phone: [facility] 01-01-2025 08:06-0400 Respiratory rate 16 /min Dr. Anila Kessler DO Work Phone: [facility] 01-01-2025 08:06-0400 SaO2% (BldA) [Mass fraction] 98 % Dr. Anila Kessler DO Work Phone: [facility] 01-01-2025 08:06-0400 Systolic blood pressure 140 mm[Hg] Dr. Anila Kessler DO Work Phone: [facility] 12-22-2024 11:42-0400 Body height 165.[address] Anila Kessler DO Work Phone: [facility] 12-22-2024 11:42-0400 Body mass index (BMI) [Ratio] 35.2 kg/m2 Dr. Anila Kessler DO Work Phone: [facility] 12-22-2024 11:42-0400 Body temperature 97.2 [degF] Dr. Anila Kessler DO Work Phone: [facility] 12-22-2024 11:42-0400 Body weight 96.[address] Anila Kessler DO Work Phone: [facility] 12-22-2024 11:42-0400 Diastolic blood pressure 82 mm[Hg] Dr. Anila Keslser DO Work Phone: [facility] 12-22-2024 11:42-0400 Heart rate 70 /min Dr. Anila Kessler DO Work Phone: [facility] 12-22-2024 11:42-0400 Respiratory rate 16 /min Dr. Anila Kessler DO Work Phone: [facility] 12-22-2024 11:42-0400 SaO2% (BldA) [Mass fraction] 98 % Dr. Anila Kessler DO Work Phone: [facility] 12-22-2024 11:42-0400 Systolic blood pressure 132 mm[Hg] Dr. Anila Kessler DO Work Phone: [facility] 03-12-2023 14:08-0400 Body height 165.[address] Anila Kessler Work Phone: [facility] 03-12-2023 14:08-0400 Body mass index (BMI) [Ratio] 36.1 kg/m2 Dr. Anila Kessler Work Phone: [facility] 03-12-2023 14:08-0400 Body temperature 98.6 [degF] Dr. Anila Kessler Work Phone: [facility] 03-12-2023 14:08-0400 Body weight 98.[address] Anila Kessler Work Phone: [facility] 03-12-2023 14:08-0400 Diastolic blood pressure 90 mm[Hg] Dr. Anila Kessler Work Phone: [facility] 03-12-2023 14:08-0400 Heart rate 70 /min Dr. Anila Kessler Work Phone: [facility] 03-12-2023 14:08-0400 Respiratory rate 16 /min Dr. Anila Kessler Work Phone: [facility] 03-12-2023 14:08-0400 SaO2% (BldA) [Mass fraction] 98 % Dr. Anila Kessler Work Phone: [facility] 03-12-2023 14:08-0400 Systolic blood pressure 132 mm[Hg] Dr. Anila Kessler Work Phone: [facility] 02-10-2023 16:59-0400 Body height 166.[address] Anila Kessler Work Phone: [facility] 02-10-2023 16:59-0400 Body mass index (BMI) [Ratio] 35.4 kg/m2 Dr. Anila Kessler Work Phone: [facility] 02-10-2023 16:59-0400 Body temperature 98.7 [degF] Dr. Anila Kessler Work Phone: [facility] 02-10-2023 16:59-0400 Body weight 98.[address] Anila Kessler Work Phone: [facility] 02-10-2023 16:59-0400 Diastolic blood pressure 82 mm[Hg] Dr. Anila Kessler Work Phone: [facility] 02-10-2023 16:59-0400 Heart rate 82 /min Dr. Anila Kessler Work Phone: [facility] 02-10-2023 16:59-0400 Respiratory rate 17 /min Dr. Anila Kessler Work Phone: [facility] 02-10-2023 16:59-0400 SaO2% (BldA) [Mass fraction] 95 % Dr. Anila Kessler Work Phone: [facility] 02-10-2023 16:59-0400 Systolic blood pressure 137 mm[Hg] Dr. Anila Kessler Work Phone: [facility] 11-20-2022 17:05-0400 Body height 165.[address] Anila Kessler Work Phone: [facility] 11-20-2022 17:05-0400 Body mass index (BMI) [Ratio] 35.7 kg/m2 Dr. Anila Kessler Work Phone: [facility] 11-20-2022 17:05-0400 Body temperature 98 [degF] Dr. Anila Kessler Work Phone: [facility] 11-20-2022 17:05-0400 Body weight 97.[address] Anila Kessler Work Phone: [facility] 11-20-2022 17:05-0400 Diastolic blood pressure 88 mm[Hg] Dr. Anila Kessler Work Phone: [facility] 11-20-2022 17:05-0400 Heart rate 80 /min Dr. Anila Kessler Work Phone: [facility] 11-20-2022 17:05-0400 Respiratory rate 16 /min Dr. Anila Kessler Work Phone: [facility] 11-20-2022 17:05-0400 SaO2% (BldA) [Mass fraction] 95 % Dr. Anila Kessler Work Phone: [facility] 11-20-2022 17:05-0400 Systolic blood pressure 140 mm[Hg] Dr. Anila Kessler Work Phone: [facility] 10-01-2022 16:32-0400 Body mass index (BMI) [Ratio] 35.7 kg/m2 Dr. Anila Kessler Work Phone: [facility] 10-01-2022 16:32-0400 Body temperature 98.5 [degF] Dr. Anila Kessler Work Phone: [facility] 10-01-2022 16:32-0400 Body weight 97.[address] Anila Kessler Work Phone: [facility] 10-01-2022 16:32-0400 Diastolic blood pressure 76 mm[Hg] Dr. Anila Kessler Work Phone: [facility] 10-01-2022 16:32-0400 Heart rate 82 /min Dr. Anila Kessler Work Phone: [facility] 10-01-2022 16:32-0400 Respiratory rate 14 /min Dr. Anila Kessler Work Phone: [facility] 10-01-2022 16:32-0400 SaO2% (BldA) [Mass fraction] 97 % Dr. Anila Kessler Work Phone: [facility] 10-01-2022 16:32-0400 Systolic blood pressure 122 mm[Hg] Dr. Anila Kessler Work Phone: [facility] Encounters Encounter Date Encounter Type Care Provider Facility Start: 01-01-2025 End: 01-01-[address] Anila Kessler DO Work Phone: [facility] Start: 01-01-2025 End: 01-01-2025 Patient encounter procedure Nithin Broussard Naomi MILK PROCESSING WORKER-C [facility] Work Phone: Start: 12-29-2024 End: 12-29-2024 ambulatory ANILA KESSLER DO Facility:[facility] Start: 12-29-2024 End: 12-29-2024 Patient encounter procedure ANILA KESSLER DO [facility] Start: 12-22-2024 End: 12-22-[address] Anila Sifuentes DO -[facility] Work Phone: Start: 12-22-2024 End: 12-22-[address] Anila Kessler DO Work Phone: -[facility] Start: 12-14-2024 End: 12-14-[address] Anila Kessler DO Work Phone: -[facility] Start: 12-14-2024 End: 12-14-[address] Anila Sifuentes DO -[facility] Work Phone: Start: 12-14-2024 End: 12-14-2024 ambulatory Anila Kessler Facility:[facility] Start: 07-05-2024 End: 07-05-2024 ambulatory Anila Kessler Facility:[facility] Start: 06-28-2024 End: 06-28-2024 ambulatory Anila Kessler Facility:[facility] Start: 06-28-2024 End: 06-28-2024 ambulatory Anila Kessler Facility:[facility] Start: 11-13-2023 End: 11-13-2023 ambulatory ANILA KESSLER DO Facility:[facility] Start: 11-13-2023 End: 11-13-2023 Patient encounter procedure ANILA KESSLER DO [facility] Start: 03-12-2023 End: 03-12-[address] Anila Kessler Work Phone: [facility] Work Phone: Start: 03-12-2023 End: 03-12-[address] Anila Kessler Work Phone: [facility]Laboratory, Specimen Work Phone: Start: 03-12-[address] Anila Kessler Work Phone: [facility] Start: 03-12-2023 End: 03-12-[address] Anila Kessler Work Phone: [facility] Work Phone: Start: 02-11-2023 End: 02-11-[address] Anila Kessler Work Phone: [facility] Work Phone: Start: 02-11-2023 End: 02-11-[address] [facility] Start: 02-10-2023 End: 02-10-[address] Anila Kessler Work Phone: [facility] Work Phone: Start: 11-21-2022 End: 11-21-[address] Anila Kessler Work Phone: [facility] Work Phone: Start: 11-21-2022 End: 11-21-[address] [facility] Start: 11-20-2022 End: 11-20-[address] Anila Kessler Work Phone: [facility] Work Phone: Start: 10-22-2022 End: 10-22-2022 Patient encounter procedure ANILA KESSLER DO [facility] Start: 10-01-2022 End: 10-01-[address] Anila Kessler Work Phone: [facility] Work Phone: Start: 03-31-2022 End: 03-31-2022 Patient encounter procedure ANILA KESSLER DO [facility] Start: 04-26-2021 End: 04-26-2021 Patient encounter procedure JOVANI PUTNAM [facility] Procedures Date Procedure Procedure Detail Performing Clinician Start: 12-14-2024 Dual energy X-ray absorptiometry Dr. Anila Kessler DO Work Phone: Start: 02-11-[address] Nam Kessler Work Phone: Start: 11-20-[address] Nam Kessler Work Phone: Plan of Treatment Date Care Activity Detail Author MG Breast - bilateral Screening [facility] MG Breast - bilateral Screening [facility] Immunizations Immunization Date Immunization Notes Care Provider Fa cili 03-26-2022 influenza, injectabl e, quadrivalent, preservative free Dr. Anila Kessler Work Phone: [facility] 03-26-2022 influenza, seasonal, injectable Dr. Anila Kessler Work Phone: [facility] 09-13-2020 Covid (Moderna) Dr. Anila Kessler Work Phone: [facility] 08-16-2020 Alhajiid (Moderna) Dr. Anila Kessler Work Phone: [facility] Payers Date Payer Category Payer Private Health Insurance [id number] 2024 Self-pay [id number] 2024 Self-pay [id number] 2024 Private Health Insurance [id number] 2023 Unknown [id number] 1955 Unknown [id number] 2.16.8 [id number] 1955 Unknown [id number] 2.16. [id number] Self-pay [id number] Unknown [id number] 2.16.8 [id number] Unknown [id number] 2.16.8 [id number] Unknown [id number] 2.16.8 [id number] Unknown [id number] 2.16.8 [id number] Unknown [id number] 2.16.8 [id number] Social History Date Type Detail Facility Start: 11-20-2022 End: 03-12-2023 Tobacco smoking status CAIS Unknown if ever smoked [facility] Start: 1955 Sex Assigned At Female [facility] Start: 03-12-2023 Tobacco smoking stat us CAIS Ex-smoker (finding) [facility] Clinical Notes 03-12-2023 to 01-01-2025 Note Date & Type Note Facility 01-01-2025 Progress note [facility] 01-01-2025 Progress note Note Date/Time January 01, 2025 8:33am [facility] [address], [address] [place] [address] OFFICE VISIT Date of Service: 01/01/25 MR#: [id number] Acct: [id number] Name: LEONARDO NIX Rep #: [id number] : 1955 Provider: GAURI Salgado Age/Sex: 69/F Location: [facility] Status: Signed Intake Vital Signs 12/22/24 11:42 01/01/25 08:06 Height 5 ft 5 in Weight: 212 lb BMI 35.2 BP 132/82 H 140/64 H Blood Pressure Location Lt brachial Lt brachial Position Sitting Sitting Respiration 16 16 Pulse 70 71 Pulse Source Monitor NIBP Temp 97.2 F L 98.6 F Temp Source Temporal Oral Pulse Oximetry (%) 98 98 Oxygen Delivery Method room air room air Intake Visit Reasons: CONCERN FOR UTI Chief Complaint: urinary urgency, decreased output, pubic pain 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 denies back pain, fever, blood, dysuria. concern for UTI PFSH Medical History UTI (urinary tract infection) Hypertension Surgical History No history of previous surgery Family History Mother Heart disease Hypertension Father Alcohol abuse Brother Heart disease Social History Smoking Status: Former smoker how long ago did patient quit smokin alcohol intake: never substance use type: does not use what type of physical activity do you participate in: walking frequency: 3-4 times per week duration: 30-45 minutes/day HPI HPI Chief Complaint: urinary urgency, decreased output, pubic pain Details: LEONARDO NIX, is a 69 F who presents to the office today for concerns regarding urinary urgency, decreased urine output, and pubic pain for the last 24 hours. She denies back pain, fever, blood in urine, or dysuria. She expresses concerns for possible urinary tract infection. ROS Const Constitutional: No body ache, chills, fatigue, fever(s) (no fever greater than 99.9 F), malaise, night sweats or other (rigors) Resp Respiratory: No shortness of breath Cardio Cardiology: No chest pain at rest or chest pain with exertion Gastro GI: No abdominal pain Genitourinary-Female: Positive for urinary urgency and suprapubic fullness; No burning urination, painful urination, urinary frequency, blood in urine or side pain Endo Endocrine: No fatigue Exam Const General: cooperative, healthy appearing, comfortable and no acute distress Orientation: alert, awake and oriented x3 Chest Chest palpation & inspection: normal inspection of the chest Resp Effort & Inspection: normal respiratory effort Auscultation: Bilateral: Clear to Auscultation Cardio Rhythm: other (Normal) Heart Sounds: S1 normal, S2 normal and no murmurs GI Inspection: normal to inspection and non-distended Auscultation: normal bowel sounds Palpation: soft and nontender General: No CVA tenderness Skin General: no rashes or lesions noted Results POC Urinalysis Dip (Clinic) Office Urine Color Yellow Last Edit by Ronna Starr on 01/01/25 08:20 Office Urine Clarity Clear Last Edit by Ronna Starr on 01/01/25 08:20 Office Urine Glucose Negative Last Edit by Ronna Starr on 01/01/25 08:20 Office Urine Ketones Negative Last Edit by Ronna Starr on 01/01/25 08:20 Off Ur Spec [place] 1.010 Last Edit by Ronna Starr on 01/01/25 08:20 Office Urine pH 6.5 Last Edit by Ronna Starr on 01/01/25 08:20 Office Urine Bilirubin Negative Last Edit by Ronna Starr on 01/01/25 08: 20 Office Urine Urobilinogen Negative Last Edit by Ronna Starr on 01/01/25 08:20 Office Urine Blood Negative Last Edit by Ronna Starr on 01/01/25 08:20 Office Urine Blood Hemolyzed Large Last Edit by Ronna Starr on 01/01/25 08:20 Office Urine Protein 1+ Last Edit by Ronna Starr on 01/01/25 08:20 Office Urine Nitrate Positive Last Edit by Ronna Starr on 01/01/25 08:20 Off Ur Leukocytes Positive Last Edit by Ronna Starr on 01/01/25 08:20 Coding Level of Care Code Off vis,est,level 3 Diagnoses Acute cystitis with hematuria N30.01 Urinary tract infection type: acute cystitis Hematuria presence: with hematuria Assessment and Plan Assessment and Plan (1) UTI (urinary tract infection): Status: Acute Qualifiers: Urinary tract infection type: acute cystitis Hematuria presence: with hematuria Qualified Code(s): N30.01 - Acute cystitis with hematuria Plan: Urine dip showed large amount of blood, positive for nitrate, and moderate leukocyte esterase. Will send for culture. Will begin antibiotic. Encouraged to get plenty of rest, drink lots of clear liquids, and use Tylenol or Ibuprofen (unless contraindicated) for fever and comfort. Patient also educated on other symptomatic management techniques. To be seen in 7-10 days if no improvement; sooner if worsening of symptoms.? Patient advised of potential red flags and when appropriate to report to the ED.? Patient verbalized understanding and agreement with all the above. Orders: Orders POC Urinalysis Dip (Clinic) Today R39.15 - Urgency of urination Culture, Urine Today R82.90 - Unspecified abnormal findings in urine Medications: New nitrofurantoin monohyd/m-cryst 100 mg (Macrobid) must administer with a meal/food 100 mg PO Q12H 7 days 14 caps 0RF Clinical Quality Measures Falls Risk Screening/Assistive Devices Have you fallen in the past year?: No 01/01/25 0833 <Electronically signed by Nithin ASTORGA> Date _ iNthin Salgado NP, NP-C Cosigner Signature: Date (if applicable) CC: Dr. Anila Kessler, DO ~ [facility] Work Phone: 1(185) 847-882207-31-2025 Evaluation note* Diagnosis Onset Date Resolution Status Admit Date Iliotibial band syndrome acute December 22, 2024 11:21am UTI (urinary tract infection) acute January 01, 2025 8:04am [facility] Work Phone: 1(781) 125-308106-21-2024 Note ORIGINAL FROM: ANTHONY MORENO[address] [address] PROCEDURE FOR: LEONARDO NIX [address] [place] [id number] Home: PID#: [id number] Exam#: [id number] : 1955 Age: 68 TO: ANILA SifuentesDaphne CHECO DO [address] [place], [place] [address] EXAMINATION: SCREENING DIGITAL BILATERAL MAMMOGRAM WITH TOMOSYNTHESIS, 11/13/2023 6:52 am TECHNIQUE: Screening mammography of the bilateral breasts was performed with tomosynthesis. 2D standard and 3D tomosynthesis combination imaging performed through both breasts in the MLO and CC projection. Computer aided detection was utilized in the interpretation of this exam. COMPARISON: October 22, 2022, April 26, 2021 HISTORY: Breast cancer screening. FINDINGS: BREAST DENSITY: There are scattered areas of fibroglandular density. There are no significant masses or calcifications. IMPRESSION: No mammographic evidence of malignancy. Continued screening with annual mammograms is recommended. Paty De La Cruzzick risk calculations, generated with the history provided, report this patient's 10 year risk and lifetime risk for developing breast cancer at 2.2% and 4.3%, respectively. Based on this assessment tool, if the patient's calculated lifetime risk is below 20%, then the patient is considered at average risk for developing breast cancer. If the patient's calculated lifetime risk is at or above 20%, then the patient is considered high risk for developing breast cancer and may be a candidate for supplemental breast MRI screening in addition to annual mammographic screening per the [employer]. BIRADS: BI-RADS: 1: Negative RECALL: 1 year screening RECALL TYPE: mammo LETTER SENT: Normal BI-RADS 1 and 2 Interpreted by: Eliane Mcginnis Preliminary Report By: Eliane Mcginnis Electronically signed By Eliane Mcginnis Dictated Date: 11/13/2023 1:31:16 PM Prelim Date: 11/13/2023 1:35:47 PM Sign Date: 11/13/2023 1:35:47 PM Ordering Provider: ANILA KESSLER Ingot Buggy Operator: LUIS ENRIQUE SERRANO RT(R)(M)(CT) WELCOME HOSTESS letter sent: Normal BI-RADS 1 and 2 Mammogram BI-RADS: 1 [facility]10-19-2023 NotePap Smear Specimen AdequacyOctober 2022 3:30pmComment.Satisfactory for evaluation. Endocervical and/or squamous metaplasticcells (endocervical component)are present.[facility] INTER[facility]ACED A#[id number] [facility] Comment on above:Satisfactory for evaluation. Endocervical and/or squamous metaplasticcells (endocervical component)are present.Evaluation + Plan note No data available for this section [facility] Evaluation note* Diagnosis Onset Date Resolution Status Hypertension chronic Yeast vaginitis acute [facility] Work Phone: Evaluation note* Diagnosis Onset Date Resolution Status Yeast vaginitis acute [facility] Work Phone: Evaluation note* Diagnosis Onset Date Resolution Status Yeast vaginitis acute Gynecologic exam normal acut e Problematic vaginal discharge chronic [facility] Work Phone: Evaluation noteNo assessment information available [facility] Work Phone: Evaluation note* Diagnosis Onset Date Resolution Status Admit Date Iliotibial band syndrome acute December 22, 2024 11:21am [facility] Work Phone: Hospital Discharge instructions No data available for this section [facility] Progress note No data available for this section [facility] Reason for referral (narrative)No reason for referral information available[facility] Work Phone: Chief Complaint and Reason for Visit Chief Complaint 6 M FU POSSIBLE UTI Reason for Visit Hypertension Yeast vaginitis Chief Complaint POSSIBLE UTI CONCERN FOR UTI Reason for Visit Yeast vaginitis Chief Complaint POSSIBLE UTI CONCERN FOR UTI PAP Reason for Visit Yeast vaginitis Gynecologic exam normal Problematic vaginal discharge Chief Complaint Admit Date OSTEOPOROSIS December 14, 2024 12:1 3pm Chief Complaint Admit Date OSTEOPOROSIS December 14, 2024 12:1 3pm DISCUSS CONCERNS December 22, 2024 11:2 1am Reason for Visit Admit Date Iliotibial band syndrome December 22, 2024 11:21am Chief Complaint Admit Date OSTEOPOROSIS December 14, 2024 12:1 3pm DISCUSS CONCERNS December 22, 2024 11:2 1am CONCERN FOR UTI January 01, 2025 8: 04am Reason for Visit Admit Date Iliotibial band syndrome December 22, 2024 11:21am UTI (urinary tract infection) December 8:04am Family History Relationship Condition Age at Onset Recorded Date/T olya mother Cardiac disease Unknown Hypertension Unknown father Alcohol abuse Unknown brother Cardiac disease Unknown Summary Purpose Advance Directives No Advanced Directives Records FoundNo Advanced Directives Records FoundNo Advanced Directives Records Found Additional Source Comments Care Team (unrecognized sect ion and content) Care Team Personnel Name: ANILA KESSLER DO Member Role: Primary Care Physician Address: Address: [address] Care Team Related Persons Name: JENNA NIX Address: Home [address] [place] [address] Patient Care team informatio n (unrecognized section and content) Team Status: Active Member Role Status Dates Dr. Anila Kessler DO Family Provider Active Dr. Anila Kessler DO Primary Care Provider Active Team Status: Inactive Member Role Status Dates Dr. Anila Kessler DO Primary Care Pr ovider, Attending Provider, Referring Provider Active Team Status: Inactive Member Role Status Dates Dr. Anila Kessler DO Primary Care Provider, Referr ing Provider Active Jose Antonio [place], [place] Attending Provider Active Team Status: Inactive Member Role Status Dates Dr. Anila Kessler DO Primary Care Provider Active Jose Antonio [place], [place] Attending Provider, Referring Provi mehreen Active Team Status: Inactive Member Role Status Dates Dr. Anila Kessler DO Primary Care Provider, Referr ing Provider Active JERSEY Casas Attending Provider Active Team Status: Inactive Member Role Status Dates Dr. Anila Kessler DO Primary Care Provider Active JERSEY Casas Attending Provider Active Team Status: Active Member Role/Relationship Status Dates Dr. Anila Kessler DO Primary Care Provider Active Team Status: Inactive Member Role/Relationship Status Dates Dr. Anila Kessler DO Primary Care Provider Active Start: December 14, 2024 End: December 14, 2024 Dr. Anila Kessler DO Attending Provider Active Start: December 14, 2024 End: December 14, 2024 Dr. Anila Kessler DO Referring Provider Active Start: December 14, 2024 End: December 14, 2024 Team Status: Inactive Member Role/Relationship Status Dates Dr. Anila Kessler DO Primary Care Provider Active Start: December 22, 2024 End: December 22, 2024 Dr. Anila Kessler DO Attending Provider Active Start: December 22, 2024 End: December 22, 2024 Dr. Anila Kessler DO Referring Provider Active Start: December 22, 2024 End: December 22, 2024 Team Status: Inactive Member Role/Relationship Status Dates Dr. Anila Kessler DO Primary Care Provider Active Start: January 01, 2025 End: January 01, 2025 Dr. Anila Kessler DO Referring Provider Active Start: January 01, 2025 End: January 01, 2025 Nithin Salgado MILK PROCESSING WORKER, MILK PROCESSING WORKER-C Attending Provider Active S tart: January 01, 2025 End: January 01, 2025 Goals (unrecognized section and content) Goals may be documented in a n alternate section INFORMATION SOURCE (unrecogn ized section and content) DATE CREATED AUTHOR 11/16/2023 [facility]ation ([place]) DATE CREATED AUTHOR AUTHOR'S ORGANIZ ATION 12/22/2024 [facility] DATE CREATED AUTHOR AUTHOR'S ORGANIZ ATION 12/31/2024 [facility] FOR RECORDS PERTAINING TO PATIENTS WHO ARE OR HAVE BEEN ENROLLED IN A CHEMICAL DEPENDENCY/SUBSTANCEABUSE PROGRAM, SOME INFORMATION MAY BE OMITTED. This clinical summary was aggregated from multiple sources. Caution should be exercised in using it in the provision of clinical care. This summary normalizes information from multiple sources, and as a consequence, information in this document may materially change the coding, format and clinical context of patient data. In addition, data may be omitted in some cases. CLINICAL DECISIONS SHOULD BE BASED ON THE PRIMARY CLINICAL RECORDS. [facility]. provides no warranty or guarantee of the accuracy or completeness of information in this document.
== END | disposition home or self-care (01) ==
PROVIDERS: PCP Family Medicine; Visit Provider Nurse Practitioner Family
DX: R82.90 Unspecified abnormal findings in urine (principal)
CPT/HCPCS: 87077; 87086; 87088; 87186

== ENCOUNTER → 2025-01-11 | Outpatient (CLI) | payer MEDICARE, SELFPAY | END | disposition home or self-care (01) | LOC: LABSPEC 01-16 08:33 | PROVIDERS: PCP Family Medicine; Visit Provider Physician Assistant | DX: R30.0 Dysuria (principal) | CPT/HCPCS: 87086; 87088 ==